=== PATIENT | female | born 2000 | race Caucasian/White ===

== ENCOUNTER → 2020-01-29 | Outpatient (CLI) | payer OTHER ==
[~2020-01-29] VITALS: Ht 180.3 cm; Wt 77.3 kg
[~2020-01-29] MED LIST: CATHETER FLUSH 10 ML SYR IV PRN; GADOBUTROL 7.5 MMOL/7.5 ML (GADAVIST) VIAL IV ONE; IOHEXOL 300 MG/ML 50 ML (OMNIPAQUE 300) VIAL IV ONE; LIDOCAINE 1% INJ 20 ML 20 ML VIAL INJ ONE; LIDOCAINE 1% INJ 20 ML 20 ML VIAL ONE
--- NOTE | 2020-01-29 15:04 | Diagnostic Imaging Report ---
PROCEDURE: MRI left joint upper extremity with contrast. TECHNIQUE: Multiplanar, multisequence intra-articular contrast-enhanced MRI of the left shoulder was accomplished. INDICATION: Left shoulder pain. COMPARISON: None. FINDINGS: No acute fracture is seen in the left shoulder. Alignment appears normal. The joint is well distended with contrast. The rotator cuff demonstrates no high-grade partial-thickness or full-thickness tears. Contrast within the subscapularis tendon is likely due to backflow from injection. No muscular atrophy is seen. The long head of the biceps tendon is normal in course with no tear seen. There is increased signal at the superior glenoid labrum at the biceps anchor with irregular borders, concerning for a tear (image 10, series 6). This irregular signal appears to stay in the superior glenoid labrum without significant extension anteriorly or posteriorly. No paralabral cyst is seen. The acromion has a slightly curved undersurface without hooking. The coracoclavicular and coracoacromial ligaments are intact. The soft tissues about the left shoulder are otherwise unremarkable. IMPRESSION: 1. Irregular increased signal at the superior left glenoid labrum concerning for small tear. No paralabral cyst is seen. 2. No left rotator cuff tear. Dictated by: Dictated on workstation # [id number]
--- NOTE | 2020-01-29 18:04 | Diagnostic Imaging Report ---
EXAM: Left shoulder injection for MRI INDICATION: Shoulder pain COMPARISON: There are no prior studies available for comparison. Following aseptic preparation of the skin and administration of local anesthesia, a 19-gauge needle was advanced into the glenohumeral joint using fluoroscopic guidance. . Subsequently, a 10 mL mixture of sodium chloride, Gadavist and Omnipaque 240 was infused. The patient tolerated the procedure well and was sent to the MR suite in good condition. IMPRESSION: There has been a successful injection of the left glenohumeral joint. MRI is pending for further study. Dictated by: Dictated on workstation # [id number]
== END ==
LOC: RAD 12:28
PROVIDERS: ATTEND Nurse Practitioner
DX: S43.432A Superior glenoid labrum lesion of left shoulder, initial encounter (principal); S43.431A Superior glenoid labrum lesion of right shoulder, initial encounter
CPT/HCPCS: 23350; 73040; 73222